=== PATIENT | female | born 1975 | race Caucasian/White ===

== ENCOUNTER 2017-11-15 21:29 | Emergency (ER) | payer OTHER ==
--- NOTE | 2017-11-15 21:49 | PDOC ---
Rapid Medical Evaluation Time Seen by Provider: 11/15/17 21:49 Medical Evaluation: 11/15/17 21:50 Healthy 41 year old female LMP 09/28 with vaginal bleeding today. Has pelvic pain, bilateral but L>R. V/s unremarkable Labs including CBC, beta hcg, T&S, UA Transvaginal u/s To Main ED for further evaluation
[2017-11-15 21:53] VITALS: BP 154/98; PULSE 94; TEMP 99.1; BMI 28.3
[2017-11-15 22:05] LABS: BASO % 1.2 % (0-2.0); HEMATOCRIT 41.6 % (32.4-45.2); HEMOGLOBIN 13.7 GM/dL (10.7-15.3); LYMPH % 27.6 % (8-40); MCH 29.4 pg (25.7-33.7); MEAN CELL VOLUME 89.2 fl (80-96); MEAN PLT VOLUME 7.5 fl (7.5-11.1); MONO % 8.4 % (3.8-10.2); NEUT % 60.8 % (42.8-82.8); PLATELET COUNT 291 K/MM3 (134-434); RBC 4.67 M/mm3 (3.60-5.2); RDW 13.2 % (11.6-15.6); WHITE BLOOD COUNT 11.1 K/mm3 (4.0-10.0)
[2017-11-15 22:59] LABS: ANION GAP 7 (8-16); BLOOD UREA NITROGEN 12 mg/dL (7-18); CALCIUM 8.5 mg/dL (8.5-10.1); CHLORIDE 105 mmol/L (98-107); CO2 28 mmol/L (21-32); CREATININE 0.8 mg/dL (0.55-1.02); GLUCOSE,RANDOM 115 mg/dL (74-106); POTASSIUM 4.4 mmol/L (3.5-5.1); SODIUM 140 mmol/L (136-145)
--- NOTE | 2017-11-15 23:23 | PDOC ---
History of Present Illness - General Chief Complaint: Vaginal Bleeding Stated Complaint: VAGINAL BLEEDING (5 WKS ) Time Seen by Provider: 11/15/17 21:49 History Source: Patient Exam Limitations: No Limitations - History of Present Illness Initial Comments: CHIEF COMPLAINT: 41 y/o afebrile, , approximately 6 week female with LMP 12/20 c/o vaginal bleeding and abdominal cramping today. 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 She has a follow up appointment with her tomorrow. Vital signs on arrival are within normal limits. REVIEW OF SYSTEMS: GENERAL/CONSTITUTIONAL: No fever/chills. No weakness. No weight change. HEAD, EYES, EARS, NOSE AND THROAT: No change in vision. No ear pain or discharge. No sore throat. CARDIOVASCULAR: No chest pain or shortness of breath. RESPIRATORY: No cough, wheezing, or hemoptysis. GASTROINTESTINAL: +abd cramping and vaginal bleeding. No nausea, vomiting, diarrhea. GENITOURINARY: No dysuria, frequency, or change in urination. MUSCULOSKELETAL: No joint or muscle swelling or pain. No neck or back pain. SKIN: No rash or easy bruising. NEUROLOGIC: No headache, vertigo, loss of consciousness, or loss of sensation. PHYSICAL EXAM: GENERAL: The patient is awake, alert, and fully oriented, in no acute distress. HEAD: Normal with no signs of trauma. ENT: Pupils equal, round and reactive to light, extraocular movements intact, sclera anicteric, conjunctiva clear. Neck supple. LUNGS: Clear to auscultation bilaterally. Normal excursion. No respiratory distress or use of accessory muscles. CV: RRR, S1/S2, no MRG. Cap refill < 2 sec. ABDOMEN: Soft, non-distended, TTP of left pelvic region and suprapubic region. VAGINAL: DEFERRED EXTREMITIES: Normal range of motion, no edema. NEUROLOGICAL: Normal speech, normal gait. CN II-XII grossly intact. SKIN: Warm, dry, normal turgor, no rashes or lesions noted. Past History - Past Medical History Allergies/Adverse Reactions: Allergies Allergy/AdvReac Type Severity Reaction Status Date / Time No Known Allergies Allergy Verified 11/15/17 21:50 Home Medications: Ambulatory Orders Metformin HCl 500 mg PO BID 11/15/17 No122/Iron/Folic Acid [ Multi Tablet] 1 each PO DAILY 11/15/17 COPD: No - Suicide/Smoking/Psychosocial Hx Smoking History: Never smoked Have you smoked in the past 12 months: No Information on smoking cessation initiated: No Hx Alcohol Use: No Drug/Substance Use Hx: No Substance Use Type: None *Physical Exam - Vital Signs Last Vital Signs Temp Pulse Resp BP Pulse Ox 99.1 F 94 H 18 154/98 98 11/15/17 21:51 11/15/17 21:51 11/15/17 21:51 11/15/17 21:51 11/15/17 21:51 ED Treatment Course - LABORATORY CBC & Chemistry Diagram: 11/15/17 21:57 11/15/17 21:57 - ADDITIONAL ORDERS Additional order review: Laboratory Results 11/15/17 11/15/17 21:57 21:57 Sodium 140 Potassium 4.4 Chloride 105 Carbon Dioxide 28 Anion Gap 7 L BUN 12 Creatinine 0.8 Random Glucose 115 H Calcium 8.5 Beta HCG, Quant 648.6 Blood Type B POSITIVE Antibody Screen Negative 11/15/17 21:57 RBC 4.67 MCV 89.2 MCHC 33.0 RDW 13.2 MPV 7.5 Neutrophils % 60.8 Lymphocytes % 27.6 Monocytes % 8.4 Eosinophils % 2.0 Basophils % 1.2 Medical Decision Making - Medical Decision Making A/P: 41 y/o female with possible miscarriage. Plan is as follows: 1. Labs 2. UA 3. Transvaginal ultrasound Transvaginal Ultrasound IMPRESSION: Gestational sac without pole or yolk sac Gave patient her results. Suggested she f/u with Dr. Sebastian tomorrow and return to the ER with any worsening or concerning symptoms. Suggested tylenol for pain. The patient verbalizes understanding of all instructions, has no further questions and is awaiting discharge. *DC/Admit/Observation/Transfer Diagnosis at time of Disposition: Vaginal bleeding affecting early - Discharge Dispostion Disposition: HOME Condition at time of disposition: Good - Referrals Referrals: ON STAFF,NOT [Primary Care Provider] - Ernestina Aquino MD [Staff Physician] - Call tomorrow - Patient Instructions Printed Discharge Instructions: DI for Vaginal Bleeding During Additional Instructions: Discharge Instructions: -You had an ultrasound that showed a gestational sac without pole or yolk sac. -Your beta HCG was 648 -These finding suggest you may be having a miscarriage -Please follow up with Dr. Aquino tomorrow -Return to the ER with any worsening or concerning symptoms Instrucciones de descarga: -Hizo nabil ecografa que mostr un saco gestacional sin polo ni saco vitelino. - Tu beta HCG fue 648 -Estos hallazgos sugieren que puede estar teniendo un aborto involuntario -Por favor, siga con el Dr. Aquino maana -Volver a la nga de urgencias con cualquier empeoramiento o sntomas Print Language: GUINEAN - Post Discharge Activity
[2017-11-15 23:51] LABS: URINE APPEARANCE CLEAR; URINE BILIRUBIN NEGATIVE (NEGATIVE); URINE BLOOD 2+ (NEGATIVE); URINE COLOR LTYELLOW; URINE GLUCOSE (UA) NEGATIVE (NEGATIVE); URINE KETONE NEGATIVE (NEGATIVE); URINE LEUK ESTERASE TRACE (NEGATIVE); URINE NITRITE NEGATIVE (NEGATIVE); URINE PROTEIN NEGATIVE (NEGATIVE); URINE UROBILINOGEN NEGATIVE mg/dL (0.2-1.0)
[2017-11-15 23:53] LABS: EPI CELLS RARE /HPF (FEW)
== END 2017-11-16 01:50 | disposition home or self-care (01) ==
LOC: JER 21:29
DX: O26.891 Other specified pregnancy related conditions, first trimester (principal); O20.8 Other hemorrhage in early pregnancy; O24.911 Unspecified diabetes mellitus in pregnancy, first trimester; Z79.84 Long term (current) use of oral hypoglycemic drugs; Z3A.01 Less than 8 weeks gestation of pregnancy
CPT/HCPCS: 36415; 76801-TC; 80048; 81003; 81015; 84702; 85025; 86850; 86900; 86901; 99282-25